=== PATIENT | male | born 1965 | race Caucasian/White ===

== ENCOUNTER 2019-03-16 08:04 | Emergency (ER) | payer OTHER ==
[~2019-03-16] VITALS: Ht 167.6 cm; Wt 104.3 kg
[2019-03-16 08:16] VITALS: BP_SYST 154
--- NOTE | 2019-03-16 08:16 | NUR ---
Patient to ER bed 8 to gown for evaluation. Side rails up. Report received from Columba RIVERA.
--- NOTE | 2019-03-16 08:35 | NUR ---
Pt c/o 10/25 left lower pelvic and left back pain, nontender to touch. Pt states pain has been on and off x1 month and was worse last night. Pt states no dysuria, no n/v/d. No other complaints or injuries per pt or noted.
--- NOTE | 2019-03-16 08:40 | NUR ---
DR RO AT BEDSIDE FOR EVALUATION
[2019-03-16] MEDS ORDERED: KETOROLAC TROMETHAMINE 30 MG VIAL IM ONE (09:00)
[2019-03-16] MEDS ORDERED: MORPHINE 2 MG/ML INJ. SYRINGE IM ONE (10:30)
--- NOTE | 2019-03-16 10:56 | NUR ---
Patient given written and verbal discharge instructions and verbalizes understanding. ER MD discussed with patient the results and treatment provided. Patient in stable condition. ID arm band removed. Rx of motrin and robaxin given. Patient educated on pain management and to follow up with PMD. Pain Scale 1/10. Opportunity for questions provided and answered. Medication side effect fact sheet provided.
[2019-03-16 10:57] VITALS: BP_SYST 126
--- NOTE | 2019-03-16 11:54 | NUR ---
PRESCRIPTION CHANGED TO TYLENOL DUE TO GASTRIC UPSET WITH IBUPROFEN, RECEIVED CALL FROM JOSE ELIAS
== END 2019-03-16 10:56 | disposition home or self-care (01) ==
LOC: SED 08:04
DX: M54.42 Lumbago with sciatica, left side (principal); N50.812 Left testicular pain; K42.9 Umbilical hernia without obstruction or gangrene
CPT/HCPCS: 74176; 76870; 96372; 99284; J1885; J2270

== ENCOUNTER 2019-03-19 09:48 | Emergency (ER) | payer OTHER ==
[~2019-03-19] VITALS: Ht 167.6 cm; Wt 103.4 kg
[2019-03-19 10:37] VITALS: BP_SYST 139
[2019-03-19 12:41] LABS: BILIRUBIN,URINE NEGATIVE (NEGATIVE); CLARITY/URINE CLEAR (CLEAR); COLOR,URINE YELLOW (YELLOW); GLUCOSE,URINE NEGATIVE (NEGATIVE); KETONES,URINE NEGATIVE (NEGATIVE); PROTEIN URINE TRACE (NEGATIVE)
[2019-03-19 12:42] LABS: BLOOD, URINE TRACE (NEGATIVE); LEUKOCYTE ESTERASE ,URINE NEGATIVE (NEGATIVE); NITRITE, URINE POSITIVE (NEGATIVE); UROBILINOGEN,URINE 0.2 (0.2-1.0)
[2019-03-19 12:48] LABS: BACTERIA,URINE MODERATE /HPF (None Seen)
[2019-03-19 13:01] LABS: BASOPHILS # (AUTO) 0.1 K/uL (0.0-0.2); BASOPHILS % (AUTO) 0.5 % (0.0-2.0); EOSINOPHILS # (AUTO) 0.2 K/uL (0.0-0.4); EOSINOPHILS % (AUTO) 1.7 % (0.0-4.0); HEMATOCRIT 40.9 % (36-54); HEMOGLOBIN 13.8 g/dL (14.0-18.0); LYMPHOCYTES # (AUTO) 2.2 K/uL (1.0-5.5); LYMPHOCYTES % (AUTO) 19.2 % (20.5-51.5); MEAN CORPUSCULAR HEMOGLOBIN 30 pg (27-31); MEAN CORPUSCULAR HGB CONC 34 % (32-36); MEAN CORPUSCULAR VOLUME 89 fL (79.0-98.0); MONOCYTES # (AUTO) 0.8 K/uL (0.0-1.0); MONOCYTES % (AUTO) 6.8 % (1.7-9.3); NEUTROPHILS # (AUTO) 8.4 K/uL (1.8-7.7); NEUTROPHILS % (AUTO) 71.8 % (40.0-70.0); PLATELET COUNT (AUTO) 253 K/uL (130-430); RED BLOOD CELL COUNT(AUTO) 4.62 MIL/uL (4.2-6.2); RED CELL DISTRIBUTION WIDTH 13.8 % (9.0-15.0); WHITE BLOOD COUNT (AUTO) 11.7 K/uL (4.8-10.8)
[2019-03-19 13:16] LABS: CALCIUM 8.9 mg/dL (8.4-11.0); CREATININE 0.93 mg/dL (0.55-1.30); POTASSIUM 3.4 mmol/L (3.5-5.1)
[2019-03-19 13:22] LABS: ALBUMIN 3.7 g/dL (3.4-4.8); TOTAL BILIRUBIN 0.5 mg/dL (0.0-1.0)
[2019-03-19 13:45] VITALS: BP_SYST 139
== END 2019-03-19 13:45 | disposition home or self-care (01) ==
LOC: SED 09:48
DX: N39.0 Urinary tract infection, site not specified (principal); Z88.6 Allergy status to analgesic agent
CPT/HCPCS: 36415; 80053; 81000-TC; 85025; 87086; 99283

== ENCOUNTER 2019-04-19 08:54 | Emergency (ER) | payer OTHER ==
[~2019-04-19] VITALS: Ht 167.6 cm; Wt 103.4 kg
--- NOTE | 2019-04-19 08:57 | NUR ---
Patient to ER bed 08 to gown for evaluation. Side rails up.
--- NOTE | 2019-04-19 08:58 | NUR ---
pt brought by family members, ambulatory, AAO4, c/o L elbow pain and swelling after falling at work yesterday. No open injuries, pt says he took Tylenol with Codeine but pain worsened
[2019-04-19 09:00] VITALS: BP_SYST 148
--- NOTE | 2019-04-19 09:00 | NUR ---
Dr Elaine at bedside examining patient
[2019-04-19] MEDS ORDERED: traMADol HCL HCL 50 MG TABLET (ULTRAM) PO ONE (09:15)
[2019-04-19 09:50] VITALS: BP_SYST 148
--- NOTE | 2019-04-19 09:50 | NUR ---
Patient given written and verbal discharge instructions and verbalizes understanding. ER MD discussed with patient the results and treatment provided. Patient in stable condition. ID arm band removed. Rx of Tramadol given. Patient educated on pain management and to follow up with PMD. Pain Scale 3 tolerable for pt. Opportunity for questions provided and answered. Medication side effect fact sheet provided.
== END 2019-04-19 09:50 | disposition home or self-care (01) ==
LOC: SED 08:54
DX: S42.432A Displaced fracture (avulsion) of lateral epicondyle of left humerus, initial encounter for closed fracture (principal); Z88.6 Allergy status to analgesic agent; W01.0XXA Fall on same level from slipping, tripping and stumbling without subsequent striking against object, initial encounter; Y93.89 Activity, other specified; Y92.89 Other specified places as the place of occurrence of the external cause; Y99.8 Other external cause status
CPT/HCPCS: 99283